=== PATIENT | female | born 1985 | race Caucasian/White ===

== ENCOUNTER → 2017-01-09 | Outpatient (CLI) | payer OTHER | END | disposition home or self-care (01) | LOC: C.PAPS 14:31 | PROVIDERS: ATTEND Obstetrics & Gynecology | DX: Z34.01 Encounter for supervision of normal first pregnancy, first trimester (principal); Z3A.00 Weeks of gestation of pregnancy not specified ==

== ENCOUNTER → 2017-01-09 | Outpatient (CLI) | payer OTHER ==
[2017-01-09 12:13] LABS: BASO % 0.3 %; BASO ABS # 0.03 K/uL (0-0.2); COMPLETE YES; EOS % 1.5 %; HEMATOCRIT 37.3 % (37-47); IG% 0.2 %; LYMPH ABS # 3.23 K/uL (1.2-3.4); MEAN CELL VOLUME 89.4 fL (80-100); MEAN CORPUSCULAR HEMOGLOBIN 30.2 pg (25-34); MEAN CORPUSCULAR HGB CONC 33.8 g/dl (32-36); MEAN PLATELET VOLUME 9.6 fL (7.4-10.4); MONO % 7.4 %; NEUT % 57.6 %; PLATELET COUNT 330 K/uL (130-400); RED BLOOD COUNT 4.17 M/uL (4.2-5.4); WHITE BLOOD COUNT 9.78 K/uL (4.8-10.8)
[2017-01-09 14:59] LABS: URINE APPEARANCE CLEAR (CLEAR); URINE BILIRUBIN NEG (NEG); URINE COLOR YELLOW; URINE NITRITE NEG (NEG); URINE SPECIFIC GRAVITY 1.014 (1.000-1.030); UROBILINOGEN NEG (NEG)
[2017-01-09 15:10] LABS: MANUAL MICROSCOPIC REQUIRED? NO; REVIEW REQ? NO
[2017-01-11 12:28] LABS: CHLAMYDIA TRACH RNA*** NOT DETECTED (NOT DETECTED); GC (NEIS GONORRHOEAE)RNA** NOT DETECTED (NOT DETECTED)
== END | disposition home or self-care (01) ==
LOC: C.LAB1850 10:37
PROVIDERS: ATTEND Obstetrics & Gynecology
DX: Z34.01 Encounter for supervision of normal first pregnancy, first trimester (principal); Z3A.00 Weeks of gestation of pregnancy not specified

== ENCOUNTER → 2017-03-08 | Outpatient (CLI) | payer OTHER ==
[2017-03-08 13:15] LABS: GTGD 50 Grams
[2017-03-09 15:14] LABS: AFP CONCENTRATION 81.9 NG/ML; AFP MULTIPLE OF MEDIAN 2.36; AFPTS INSULIN DEP DIABETIC? NO; AFPTS MATERNAL WT 167 LBS; ALPHA-FETOPROTEIN RACE CAUCASIAN=W; HISTORY OF NTD NO; INHIBIN A 162 PG/ML; INHIBIN A MOM 1.03; REPEAT SAMPLE? NO; hCG MULTIPLE OF MEDIAN 1.23
== END | disposition home or self-care (01) ==
LOC: C.LAB1850 09:36
PROVIDERS: ATTEND Obstetrics & Gynecology
DX: Z34.02 Encounter for supervision of normal first pregnancy, second trimester (principal)

== ENCOUNTER → 2017-05-24 | Outpatient (CLI) | payer OTHER ==
[2017-05-24 12:06] LABS: HEMATOCRIT 33.4 % (37-47)
== END | disposition home or self-care (01) ==
LOC: C.LAB1850 09:29
PROVIDERS: ATTEND Obstetrics & Gynecology
DX: Z34.02 Encounter for supervision of normal first pregnancy, second trimester (principal)

== ENCOUNTER → 2017-07-20 | Outpatient (CLI) | payer OTHER | END | disposition home or self-care (01) | LOC: C.LABSPEC 10:59 | PROVIDERS: ATTEND Obstetrics & Gynecology | DX: Z34.03 Encounter for supervision of normal first pregnancy, third trimester (principal) ==

== ENCOUNTER 2017-08-16 19:27 | Inpatient (IN) | payer OTHER ==
[~2017-08-16] VITALS: Ht 160 cm; Wt 87.0 kg
[2017-08-16] MEDS ORDERED: LACTATED RINGER'S 1000ML 1,000 ML IV PRN (20:22)
[2017-08-16] MEDS ORDERED: LACTATED RINGER'S 1000ML 1,000 ML IV SCH (20:22)
[2017-08-16] MEDS ORDERED: PENICILLIN G POTASSIUM IV 6 MU in DEXTROSE 5% 250ML 250 ML IV ONE (20:45)
[2017-08-16 20:55] LABS: HEMATOCRIT 36.1 % (37-47); HEMOGLOBIN 11.4 g/dL (12.0-16.0); MEAN CELL VOLUME 84.3 fL (80-100); MEAN CORPUSCULAR HEMOGLOBIN 26.6 pg (25-34); MEAN CORPUSCULAR HGB CONC 31.6 g/dl (32-36); MEAN PLATELET VOLUME 8.9 fL (7.4-10.4); PLATELET COUNT 262 K/uL (130-400); RED CELL DISTRIBUTION WIDTH CV 15.1 % (11.5-14.5); RED CELL DISTRIBUTION WIDTH SD 46.3 fL (36.4-46.3); WHITE BLOOD COUNT 16.52 K/uL (4.8-10.8)
[2017-08-16] MEDS ORDERED: LACTATED RINGER'S 1000ML 500 ML IV PRN (21:09)
[2017-08-16] MEDS ORDERED: OXYTOCIN 30 UNITS/500ML NSS IV PRN (21:15)
[2017-08-16 21:33] VITALS: Ht 160 cm; Wt 87.0 kg
[2017-08-17] MEDS ORDERED: EpHEDrine SULFATE INJ 50 MG/ML AMP ONE (00:03)
[2017-08-17] MEDS ORDERED: BUPIVACAINE 0.25% 30 ML VIAL ONE (00:03)
[2017-08-17] MEDS ORDERED: FENTANYL CITRATE INJ 50 MCG/1 ML 2 ML VIAL ONE (00:04)
[2017-08-17] MEDS ORDERED: FENTANYL 2MCG/ML ROPIV 1.25MG/ML 100ML BAG EPI ONE (00:05)
[2017-08-17] MEDS: PENICILLIN G POTASSIUM IV 3 MU in DEXTROSE 5% 100ML 100 ML IV PRN ×3 (01:00→08:30)
[2017-08-17] MEDS ORDERED: LACTATED RINGER'S 1000ML 500 ML IV PRN (01:26)
[2017-08-17] MEDS ORDERED: NALOXONE HCL INJ 0.4 MG/1 ML VIAL/CARP IV PRN (01:30)
[2017-08-17] MEDS: EpHEDrine SULFATE INJ 50 MG/ML AMP IV PRN ×2 (01:42→02:38)
[2017-08-17] MEDS: FENTANYL 2MCG/ML ROPIV 1.25MG/ML 100ML BAG EPI PRN ×2 (07:04→09:03)
[2017-08-17] MEDS ORDERED: SUPERCREAM 0.870 % 15GM JAR EXT PRN (12:45)
[2017-08-17] MEDS ORDERED: BENZOCAINE 20% AER SPR 82.5 GM CAN EXT PRN (12:45)
[2017-08-17] MEDS ORDERED: HYDROCORTISONE ACETATE 25 MG SUPP PR PRN (12:45)
[2017-08-17] MEDS ORDERED: OXYTOCIN 30 UNITS/500ML NSS IV PRN (12:45)
[2017-08-17] MEDS ORDERED: ACETAMINOPHEN/CODEINE 300/30MG TAB PO PRN ×2 (12:45)
[2017-08-17] MEDS ORDERED: LANOLIN OINT EXT PRN (12:45)
[2017-08-17] MEDS ORDERED: DIPHTHERIA/TETANUS/PERTUSSIS 0.5 ML SYR/VIAL IM. ONE (14:00)
[2017-08-17] MEDS: ACETAMINOPHEN 325 MG TAB PO PRN ×2 (14:05→18:34)
--- NOTE | 2017-08-17 14:14 | DELIVERY SUMMARY ---
DATE OF OPERATION: 08/17/2017 FINDINGS: A viable female infant with Apgars of 7 and 9. Baby delivered over a midline episiotomy with a second-degree right periurethral tear. Nuchal cord x2 reduced on the perineum. Cord gases and cord blood samples were obtained. Cord blood donation kit collected. The placenta was delivered spontaneously. Laceration and episiotomy were repaired in routine fashion. ESTIMATED BLOOD LOSS: 300 mL. LABOR NOTE: The patient is a 31-year-old 2, para 0, admitted at 40 weeks gestational age with spontaneous rupture of membranes. Membranes ruptured at approximately 1900 hours on . She then developed contractions thereafter. The patient had had a benign course. On admission, the patient's tracing was category 2. The cervix on examination was closed in posterior. The patient wished to ambulate. The patient ambulated for 6 hours with minimal cervical change and Pitocin was initiated. The patient's contractions became more uncomfortable. Anesthesia was consulted and an epidural was placed. The patient progressed to 5 cm at which point, delivering physician assumed care for the patient. The patient progressed to full dilatation and began her second stage. She pushed for approximately an hour and half with the vertex on the perineum, concerned about a possible a shoulder dystocia and as such a midline episiotomy was cut. Marked meconium was noted at this point and nuchal cord x2 was reduced. Baby was delivered using a corkscrew maneuver. Cord was clamped and cut. The baby was taken over to the resuscitation stand. Cord gases and cord blood samples were obtained. Cord blood donation kit collected. The placenta was delivered spontaneously. Inspection of the perineum showed a right midline periurethral tear along with a midline episiotomy, these repaired with a 4-0 Vicryl in routine fashion. Estimated blood loss was 300 mL. Sponge and needle count was correct. I attest to the content of the Intraoperative Record and any orders documented therein. Any exception s are noted below.
--- NOTE | 2017-08-17 14:24 | Anesthesia Procedure Note ---
Anesthesia Epidural Removal Nt Date & Time Aug 17, 2017 at 14:24 Vital Signs Pain Intensity: 7.0 Notes Mental Status: alert / awake / arousable, participated in evaluation Nausea / Vomiting: adequately controlled Pain: adequately controlled Airway Patency, RR, SpO2: stable & adequate BP & HR: stable & adequate Hydration State: stable & adequate Neuraxial Anesthesia: was administered Anesthetic Complications: no major complications apparent, pt satisfied with anesthetic care Epidural: removed without complications, with tip intact
[2017-08-17 15:25] VITALS: BP 102/65; PULSE 106; TEMP 36.7
[2017-08-17 19:30] VITALS: BP 111/74; PULSE 87; TEMP 36.5
[2017-08-17] MEDS: DOCUSATE SODIUM 100 MG CAP PO SCH (20:21)
[2017-08-17 23:15] VITALS: BP 94/58; PULSE 87; TEMP 37; O2SAT 97
[2017-08-18 04:10] VITALS: BP 96/64; PULSE 92; TEMP 36.8; O2SAT 96
[2017-08-18 06:24] LABS: HEMATOCRIT 28.5 % (37-47); HEMOGLOBIN 9.3 g/dL (12.0-16.0)
--- NOTE | 2017-08-18 06:35 | Progress Note ---
Subjective Aug 18, 2017. Subjective conversation w/ patient, physical exam, chart review, lab review Ambulation: ambulating normally Voiding: no voiding problems Passing Gas: Yes Diet Tolerance: Regular Diet Lochia: Small Feeding Type: Breast Feeding Review of Systems Constitutional: No fever, No chills Respiratory: No cough, No shortness of breath Cardiac: No chest pain, No palpitations Abdomen: No pain, No nausea, No vomiting Female : No dysuria Objective Vital Signs Date Time Temp Pulse Resp B/P (MAP) Pulse Ox O2 Delivery O2 Flow Rate FiO2 08/18/17 04:10 36.8 92 16 96/64 (75) 96 Room Air 08/17/17 23:15 97 Room Air 08/17/17 23:15 37.0 87 16 94/58 (70) 97 Room Air 08/17/17 19:30 36.5 87 20 111/74 (86) Room Air 08/17/17 15:25 36.7 106 20 102/65 (77) Room Air 08/17/17 15:25 Room Air Physical Exam General Appearance: WELL-APPEARING, WD/WN, NO APPARENT DISTRESS Respiratory/Chest: lungs clear, no respiratory distress Cardiovascular: regular rate, rhythm, no murmur Abdomen: non tender, soft Fundus: Firm, Relation to Umbilicus (1 cm below ) Extremities: normal range of motion, normal inspection Laboratory Results Last 24 Hours Test 08/18/17 06:03 Hemoglobin 9.3 g/dL Hematocrit 28.5 % Assessment and Plan Post- Day#: 1 Continue Routine Care: 31, F , O+/GBS+/RI, PPD1. Reviewed patients vitals (BP 95/60, HR 90-100). Encourage PO intake. Hgb 11.4 on admission, pending this am. No signs or sx of anemia. Plan 1. Recovery from vaginal delivery; ambulate, control pain, monitor lochia, support bf Resident Physician Supervision Note: I interviewed and examined the patient. Discussed with Dr. Mae and agree with findings and plan as documented in the note. Any exceptions or clarifications are listed here: C/O tailbone pain, discussed with patient. Routine care Documented By: Kingsley Zamudio
[2017-08-18 07:20] VITALS: BP 101/67; PULSE 91; TEMP 36.8; O2SAT 99
[2017-08-18] MEDS: FERROUS SULFATE 325 MG TAB PO SCH (08:27)
[2017-08-18] MEDS: DOCUSATE SODIUM 100 MG CAP PO SCH ×2 (08:28→19:46)
[2017-08-18] MEDS: PRENATAL VITAMIN TAB PO SCH (08:28)
[2017-08-18] MEDS: OXYCODONE/ACETAMINOPHEN 5-325 TAB PO PRN ×3 (08:30→18:48)
--- NOTE | 2017-08-18 09:01 | Discharge Instructions ---
Discharge Instructions Date of Service Aug 18, 2017. Admission Reason for Admission: R/O Labor Discharge Discharge Diagnosis / Problem: vaginal delivery Discharge Goals Goal(s): Routine recovery after delivery Medications Continue Dispensed Medications: supercream, dermaplast, tucks, lansinoh Activity Recommendations Activity Limitations: per Instructions/Follow-up section . Instructions / Follow-Up Instructions / Follow-Up ACTIVITY RECOMMENDATIONS: * Gradual return to full activity over the next 2-3 weeks. * No lifting - nothing heavier than baby over the next 2-3 weeks. * Do not engage in vigorous exercise, sexual activity or sports until cleared by your physician. * Do not drive or operate any motorized equipment until cleared by your physician. * You may shower/bathe daily. MEDICATIONS: For discomfort or pain, you may use Acetaminophen (Tylenol), Ibuprofen (Advil), or Naproxen (Aleve) following the package directions. For constipation you may use Colace following the package directions. BREAST CARE: If you are not breast feeding: * Wear a supportive bra 24 hours a day for one to two weeks. * Avoid stimulating your breasts and nipples as much as possible during the first few weeks after delivery. * When taking a shower, have the warm water hit your back, not breasts. * When your breasts feel full, apply ice packs. Usually three to four times a day helps ease the discomfort. * Take a mild pain medication (Tylenol / Motrin) when you are uncomfortable. If breast feeding: * Use breast milk to lubricate nipples. Lansinoh cream may be used for sore nipples. You do not need to remove cream prior to breast feeding. If using a different brand of cream, check the label for directions regarding removal of cream prior to nursing. * Wear a supportive bra. * If having problems with breasts or breast feeding, call a recruiting and selection consultant or your health care provider. SPECIAL CARE INSTRUCTIONS: When you are discharged from the hospital, it is important for you to follow the instructions listed below: * During the first week at home, you should be able to care for yourself and your baby. In addition, the usual light household activities are encouraged. * Limit your activities to the way you feel. Do not try to clean the house or move furniture. Be sensible. * If you actively engage in sports and have done so up until the time of your delivery, you may resume these activities as soon as you feel able. This may take up to one month or even longer. Use good judgment. * Continue to take your vitamins for at least six weeks after the of your baby. * Your diet need not be limited unless you were on a special diet before your delivery. Breast-feeding mothers need around 2500 calories per day and at least 64-80 ounces of fluid per day (8 to 10 glasses). * You should eat foods from the four major food groups. Crash diets or fad diets are to be avoided. Eating lean meats, fresh fruits and vegetables, low-fat dairy products, high fiber foods and a regular exercise program, will help you get back to your pre- weight without putting your health at risk. * Constipation is sometimes a problem after delivery. Take a mild laxative as needed. If breast feeding, Milk of Magnesia is acceptable to use. You may use a suppository or Fleets enema. * A daily shower or tub bath is suggested. Wash incision daily with warm soapy water and pat dry. It doesn't need to be covered unless drainage is present. * A bloody vaginal discharge will usually continue until around four weeks . A small amount of bleeding may continue for as long as six weeks. Vaginal discharge changes from the bright red bleeding after delivery to pink then brownish and finally yellowish-pink before becoming white and disappearing. * Bleeding may increase with activity. Your first period may come in 4-8 weeks. If you are breast feeding, your period may be delayed even longer. * [place] (sex) can begin whenever both you and your partner feel comfortable and do not have any form of genital infection. It is recommended that you wait at least six weeks for internal and external healing to occur. If you have questions, please talk to your health care practitioner. A condom should be used to prevent infection and . * Foreplay, gentle intercourse and lubrication is very important the first several times to prevent pain. A water-based lubricant such as K-Y jelly or Astroglide may be used. * If you have RH negative blood and your baby is RH positive, you will receive RHOGAM by injection prior to discharge. The nurse will give you a card to keep with you that has the date and place that you received RHOGAM after delivery. * During your care, you had a Rubella screen done to check for the presence of rubella antibodies in your blood. If your test was negative, you will receive a Rubella vaccine prior to discharge. This vaccine may cause a fever, soreness at the injection site and flu-like symptoms. If these symptoms persist, notify your health care practitioner. is not advised for one month after a Rubella vaccine. * Verbalizes understanding of car seat law as reviewed with patient nursing. * Car Seat hand-out given and reviewed with patient by nursing. * Shaken baby information reviewed with patient by nursing. Call you doctor if: * Heavy bleeding (saturating several pads an hour) or passing clots the size of your fist. * A fever >101 degrees F (38.3 degrees C) on two occasions four hours apart and /or chills. * Unusual pain in the pelvic or vaginal areas. * Call the doctor for any increased redness, drainage or swelling around the incision and any pain unrelieved by prescribed pain medication. * "Baby Blues" lasting longer than two weeks. If you have any questions or concerns, call your health care practitioner at . FOLLOW UP VISIT: * Please call the office at to schedule a 6 week examination. It is important you keep this appointment. It is important for you to make arrangements for either yearly or twice yearly check-ups thereafter. Current Hospital Diet Patient's current hospital diet: Regular OB Diet Discharge Diet Recommended Diet: Regular Diet, Regular OB Diet Pending Studies Studies pending at discharge: no Medical Emergencies . Who to Call and When: Medical Emergencies: If at any time you feel your situation is an emergency, please call [phone] immediately. . Non-Emergent Contact Non-Emergency issues call your: Primary Care Provider, Assisted Living Administrator . . "Provider Documentation" section prepared by Alhaji Mae. .
[2017-08-18 12:20] VITALS: BP 134/73; PULSE 80; TEMP 36.8; O2SAT 98
[2017-08-18 16:45] VITALS: BP 96/62; PULSE 78; TEMP 36.6; O2SAT 98
[2017-08-18] MEDS ORDERED: BISACODYL 5 MG TABEC PO SCH (20:00)
[2017-08-19] MEDS: OXYCODONE/ACETAMINOPHEN 5-325 TAB PO PRN ×3 (00:09→11:14)
[2017-08-19 00:55] VITALS: BP 102/66; PULSE 89; TEMP 36.7
--- NOTE | 2017-08-19 07:13 | Progress Note ---
Subjective Aug 19, 2017. Subjective conversation w/ patient, physical exam, chart review, lab review Ambulation: ambulating normally Voiding: no voiding problems Passing Gas: Yes Diet Tolerance: Regular Diet Lochia: Small Feeding Type: Breast Feeding Pain: patient complains of peristant tailbone pain Review of Systems Constitutional: No fever, No chills Respiratory: No cough, No shortness of breath Cardiac: No chest pain, No palpitations Abdomen: No pain, No nausea, No vomiting Female : No dysuria Objective Vital Signs Date Time Temp Pulse Resp B/P (MAP) Pulse Ox O2 Delivery O2 Flow Rate FiO2 08/19/17 00:55 Room Air 08/19/17 00:55 36.7 89 20 102/66 (78) Room Air 08/18/17 16:45 36.6 78 18 96/62 (73) 98 Room Air 08/18/17 16:45 98 Room Air 08/18/17 12:20 36.8 80 16 134/73 (93) 98 Room Air 08/18/17 07:20 Room Air 08/18/17 07:20 36.8 91 16 101/67 (78) 99 Room Air Physical Exam General Appearance: WELL-APPEARING, WD/WN, NO APPARENT DISTRESS Respiratory/Chest: lungs clear, no respiratory distress Cardiovascular: regular rate, rhythm, no murmur Abdomen: non tender, soft Fundus: Firm, Relation to Umbilicus (2 below the u) Extremities: non-tender, normal inspection Assessment and Plan Post- Day#: 2 Continue Routine Care: 31, F , O+/GBS+/RI, PPD2. Reviewed patients vitals, WNL. Encourage PO intake. Hgb 11.4 on admission-->9.3 yesterday. No signs or sx of anemia. Plan 1. Recovery from vaginal delivery; ambulate, control pain, monitor lochia, support bf 2. Continued tailbone pain--positioning, waffle cushion, PRN pain meds 3. Discussed dc planning Resident Physician Supervision Note: I was present with Dr. Mae during the history and exam. I discussed the case with the resident and agree with the findings and plan as documented in the note. Any exceptions or clarifications are listed here: Doing well. ready to go home. instructions reviewed. has allergy to ibuprofen so will send home with small amount of percocet for tailbone pain. aware that it is not limitless and is addictive. she verbalized understanding. CHecked in pa pdmp and no issues. Documented By: Khloe Quiles
[2017-08-19] MEDS ORDERED: OXYC-57 PO (07:39)
[2017-08-19 07:50] VITALS: BP 95/61; PULSE 98; TEMP 36.8; O2SAT 97
[2017-08-19] MEDS: PRENATAL VITAMIN TAB PO SCH (08:57)
[2017-08-19] MEDS: FERROUS SULFATE 325 MG TAB PO SCH (08:58)
[2017-08-19] MEDS: DOCUSATE SODIUM 100 MG CAP PO SCH (08:58)
[2017-08-19 11:27] VITALS: BP_DIAS 61; PULSE 98; TEMP 36.8
== END 2017-08-19 11:30 | disposition home or self-care (01) | DRG 774 ==
LOC: C.LD 19:27 → C.OPB 19:27 → C.LD 20:24 → C.OPB 20:24 → C.OBG 08-17 15:30
PROVIDERS: ADMIT Obstetrics & Gynecology; ATTEND Obstetrics & Gynecology
PROC: 0W8NXZZ Division of Female Perineum, External Approach (ICD-10-PCS; principal; 2017-08-17)
PROC: 0UQMXZZ Repair Vulva, External Approach (ICD-10-PCS; principal; 2017-08-17)
PROC: 10E0XZZ Delivery of Products of Conception, External Approach (ICD-10-PCS; principal; 2017-08-17)
DX: O42.02 Full-term premature rupture of membranes, onset of labor within 24 hours of rupture (principal); O90.89 Other complications of the puerperium, not elsewhere classified; O99.824 Streptococcus B carrier state complicating childbirth; O66.0 Obstructed labor due to shoulder dystocia; O71.82 Other specified trauma to perineum and vulva; O77.0 Labor and delivery complicated by meconium in amniotic fluid; O69.81X0 Labor and delivery complicated by cord around neck, without compression, not applicable or unspecified; M53.3 Sacrococcygeal disorders, not elsewhere classified; O99.52 Diseases of the respiratory system complicating childbirth; J45.909 Unspecified asthma, uncomplicated; Z88.6 Allergy status to analgesic agent; Z3A.40 40 weeks gestation of pregnancy; Z37.0 Single live birth